=== PATIENT | female | born 1970 | race Caucasian/White ===

== ENCOUNTER → 2016-06-29 | Outpatient (CLI) | payer OTHER ==
[~2016-06-29] VITALS: Ht 167.6 cm; Wt 105.6 kg
[~2016-06-29] MED LIST: ALBUTEROL0.83 MG/ML IH; ATIVAN 0.50.5 MG/TAB PO; ATIVAN 1MG T1 MG/TAB PO; CETIRIZINE PO; CIPRO 500MG TA500 MG PO; FLEXERIL10 MG PO; GABAPENTIN300 M1 PO; LEVAQUIN 750MG750 M1 PO; LORTAB ELIX0.5 MG/ML PO; METHOCARBAMOL500 MG PO; MOBIC15 MG PO; NAPROSYN PO; NORCO 325 MG-51 TAB PO; PEPCID 20MG TAB20 MG PO; PERCOCET 5/321 UDTAB PO; PHENERGAN W/CO120 M1 PO; PHENERGAN W/CO120 ML PO; PREDNISONE20 MG PO; PRILOSEC 20MG20 MG PO; PRILOSEC10 MG PO; PROTONIX 40MG T40 MG PO; PROTONIX20 MG PO; SERTRALINE100 MG PO; SLOW FE45 MG PO; TRAZODO50 MG PO; TYLENOL ARTHRI650 M1 PO; VALIUM 5MG T5 MG/TAB PO; VICODIN 5/5001 UDTAB PO; WELLBUTRIN XL150 MG PO; ZITHROMAX 250M250 MG PO; ZOLOFT 100MG100 MG PO; ZOLOFT50 MG PO; [UNRECOGNIZED DRUG - OTHER] PO
[2016-06-29 10:45] VITALS: BP 144/83; PULSE 67
[2016-06-29 11:52] VITALS: BP 149/77; PULSE 74
[2016-06-29 11:53] VITALS: BP 134/71; PULSE 73
[2016-06-29 11:54] VITALS: BP 125/67; PULSE 75
== END ==
LOC: COL.CARD 10:36
DX: R07.9 Chest pain, unspecified (principal)
CPT/HCPCS: A9502; J2785

== ENCOUNTER 2018-04-03 19:50 | Emergency (ER) | payer OTHER ==
[~2018-04-03] VITALS: Ht 167.6 cm; Wt 104.5 kg
[2018-04-03 19:52] VITALS: TEMP 97.9
[2018-04-03 20:38] LABS: BASO # 0.1 (0.0-0.2); EOS # 0.1 (0.0-0.7); EOS % 1.6 % (0-4.0); GRAN # 4.6 (1.4-6.5); GRAN % 67.7 % (42.2-75.2); HEMOGLOBIN 14.7 g/dl (12.5-16.0); LYMPH # 1.5 (1.2-3.4); LYMPH % 21.6 % (20.0-51.0); MEAN CELL VOLUME 88 fl (80.0-100.0); MEAN CORPUSCULAR HEMOGLOBIN 29 pg (27.0-31.0); MEAN CORPUSCULAR HGB CONC 33 g/dl (33.0-37.0); MONO # 0.5 (0.1-0.6); MONO % 7.8 % (1.7-9.3); PLATELET COUNT 311 K/mm3 (130-400); RED BLOOD COUNT 5.03 M/mm3 (4.10-5.30); REDCELL DISTRIBUTION WIDTH-CV 13.9 % (11.5-14.5)
[2018-04-03 20:47] LABS: ALBUMIN 4.2 gm/dL (3.5-5.0); BILIRUBIN,TOTAL 0.5 mg/dL (0.0-1.0); CALCIUM 9.4 mg/dL (8.4-10.2); CREATININE, serum 0.68 mg/dL (0.52-1.25); TOTAL PROTEIN 7.6 gm/dL (6.4-8.2)
[2018-04-03] MEDS ORDERED: ZITHROMAX 250M250 MG PO (21:25)
[2018-04-03] MEDS ORDERED: PREDNISONE20 MG PO (21:25)
[2018-04-03 22:03] VITALS: BP 164/90; PULSE 65
== END 2018-04-03 22:03 | disposition home or self-care (01) ==
LOC: COL.ER 19:50
PROVIDERS: Nurse Practitioner
DX: J20.9 Acute bronchitis, unspecified (principal); F32.9 Major depressive disorder, single episode, unspecified; I10 Essential (primary) hypertension; J45.909 Unspecified asthma, uncomplicated
CPT/HCPCS: J7030; J7512

== ENCOUNTER 2018-08-24 12:12 | Inpatient (IN) | payer OTHER ==
[~2018-08-24] VITALS: Ht 167.6 cm; Wt 112.0 kg
[2018-08-24 13:44] LABS: BASO % 0.6 % (0.0-2.0); EOS # 0.2 (0.0-0.7); EOS % 2.1 % (0-4.0); GRAN # 5.3 (1.4-6.5); GRAN % 73.7 % (42.2-75.2); HEMATOCRIT 39.2 % (37.0-47.0); LYMPH # 1.2 (1.2-3.4); LYMPH % 16.3 % (20.0-51.0); MEAN CELL VOLUME 89 fl (80.0-100.0); MEAN CORPUSCULAR HEMOGLOBIN 29 pg (27.0-31.0); MEAN CORPUSCULAR HGB CONC 33 g/dl (33.0-37.0); MEAN PLATELET VOLUME 9.8 fl (7.4-10.4); MONO # 0.5 (0.1-0.6); PLATELET COUNT 250 K/mm3 (130-400); RED BLOOD COUNT 4.43 M/mm3 (4.10-5.30); REDCELL DISTRIBUTION WIDTH-CV 13.7 % (11.5-14.5)
[2018-08-24 13:53] LABS: PROTHROMBIN TIME 11.7 SECONDS (9.7-12.8)
[2018-08-24 13:54] LABS: ALANINE AMINOTRANSFERASE 15 U/L (9-52); ALBUMIN 3.6 gm/dL (3.5-5.0); ALKALINE PHOSPHATASE 92 U/L (50-136); ANION GAP 9 mmol/L (7-16); AST,SGOT 22 U/L (15-37); BILIRUBIN,TOTAL 0.4 mg/dL (0.0-1.0); BLOOD UREA NITROGEN 12 mg/dL (7-17); CALCIUM 9.1 mg/dL (8.4-10.2); CARBON DIOXIDE 25 mmol/L (22-30); CHLORIDE 107 mmol/L (98-107); GLUCOSE 99 mg/dL (74-106); POTASSIUM 4.1 mmol/L (3.4-5.0); SODIUM 141 mmol/L (137-145); TOTAL PROTEIN 6.7 gm/dL (6.4-8.2)
[2018-08-24 13:56] LABS: PARTIAL THROMBOPLASTIN TIME 31.2 SECONDS (26.0-37.0)
[2018-08-24 14:05] LABS: TROPONIN-I < 0.012 ng/mL (0.000-0.035)
[2018-08-24 14:13] LABS: D-DIMER < 200.00 ng/mLDDu (200-230)
--- NOTE | 2018-08-24 18:26 | NUR ---
Patient to room 309 by wheelchair from ED. A&Ox4, denies pain and discomfort. Nurse oriented patient to room, call light and bed. Patient verbalized an understanding. IV CDI. No further needs expressed from patient. Call light within reach
[2018-08-24 19:39] VITALS: BP 171/70; PULSE 66; TEMP 97.4
[2018-08-24 19:41] VITALS: BP 171/70; PULSE 66; TEMP 97.4
--- NOTE | 2018-08-24 19:45 | NUR ---
pt resting in bed A+Ox4 with family at bedside. reports no pain. tele on. lovenox for VTE. pt reports no needs at this time. call light in reach
[2018-08-24 21:36] VITALS: BP 131/69
[2018-08-24 23:54] VITALS: BP 116/60; PULSE 57; TEMP 97.9
[2018-08-25] VITALS (8 sets, daily range): BP systolic 119–143; BP diastolic 55–66; PULSE 56–66; TEMP 97.4–98.4
--- NOTE | 2018-08-25 05:08 | NUR ---
pt had an uneventful night. reported no pain. last troponin neg. tele in. iv flushes well, no swelling, no redness. pt walk is steady. no soa. lungs clear. no edema noted. vss throughout night. no needs at this time. call light in reach
--- NOTE | 2018-08-25 06:42 | NUR ---
REPORT GIVEN TO DANILO JONES
[2018-08-25 08:44] LABS: BASO % 0.8 % (0.0-2.0); EOS # 0.1 (0.0-0.7); EOS % 2.8 % (0-4.0); GRAN # 3.1 (1.4-6.5); GRAN % 63.6 % (42.2-75.2); HEMATOCRIT 39.6 % (37.0-47.0); LYMPH # 1.2 (1.2-3.4); LYMPH % 24.9 % (20.0-51.0); MEAN CELL VOLUME 89 fl (80.0-100.0); MEAN CORPUSCULAR HEMOGLOBIN 29 pg (27.0-31.0); MEAN CORPUSCULAR HGB CONC 33 g/dl (33.0-37.0); MEAN PLATELET VOLUME 10.4 fl (7.4-10.4); MONO # 0.4 (0.1-0.6); MONO % 7.5 % (1.7-9.3); PLATELET COUNT 260 K/mm3 (130-400); RED BLOOD COUNT 4.44 M/mm3 (4.10-5.30)
[2018-08-25 09:03] LABS: ALBUMIN 3.6 gm/dL (3.5-5.0); BILIRUBIN,TOTAL 0.4 mg/dL (0.0-1.0); CALCIUM 9.1 mg/dL (8.4-10.2); CREATININE, serum 0.75 (0.52-1.25); MAGNESIUM 2.1 mg/dL (1.6-2.3); PHOSPHOROUS 3.6 mg/dL (2.5-4.5); POTASSIUM 4.3 mmol/L (3.4-5.0); TOTAL PROTEIN 6.7 gm/dL (6.4-8.2)
--- NOTE | 2018-08-25 10:30 | NUR ---
HAYLEE met with the patient to discuss a discharge plan. The pt lives in [place] with her children. The pt does not use DME and reports independence with ADLs. The pt's PCP is Christine Krishna NP at [facility] and receives her medications from [facility] with no difficulties. The pt does not have advanced directives in the EMR but was interested in a DPOS-HC form. HAYLEE provided the form. The pt plans to return home upon discharge. There are no additional needs at this time.
--- NOTE | 2018-08-25 18:00 | NUR ---
PT HAD UNEVENTFUL DAY. NO C/O CHEST PAIN THIS SHIFT. TELE DIDNT REPORT ABNORMALITIES. PT ONLY STATED SHE HAD A HEADACHE THIS MORNING, ADMINSTERED PRN TYLENOL, NO FURTHER COMPLAINTS.
--- NOTE | 2018-08-25 19:37 | NUR ---
REPORT RECEIVED FROM DANILO JONES. PT ABOUT TO HAVE DINNER IN BED. PT DENIED PAIN. CALL LIGHT IN REACH. NO CONCERN AT THIS TIME.
--- NOTE | 2018-08-25 20:10 | NUR ---
At approximately 1999, patient was walking in hallway, and this nurse noticed patient grabbing at chest. Asked patient if she was ok. Stated that she was having chest pain. Patient short of breath as well, only able to get a few words out at a time. Wheelchair grabbed for patient, and assiste back to room and into bed. VS: 97.9 59 18 135/61 97% RA. Stated that chest pain subsided after sitting down, as well as SOB. Stated she was just trying to walk for a little while, but only got from her room in 309 to nurse's station. This nurse called telemetry to see if any changes occured to heart rhythm, but was in normal sinus. This nurse called and notified primary nurse of incident. Voices no questions, needs, or concerns at this time. In bed with HOB elevated as requested. Call light is within reach.
--- NOTE | 2018-08-25 20:36 | NUR ---
Pt c/o chest pain when she started walking and reported to nursing staff. Pt resting in bed and reports her chest pain comes and goes. Pt's VS stable. Call light in reach.
--- NOTE | 2018-08-25 22:01 | NUR ---
VISIT ATTEMPTED AND PT SLEEPING SOUNDLY IN BED. CALL LIGHT IN REACH.
--- NOTE | 2018-08-25 23:30 | NUR ---
VISIT ATTEMPTED AND PT SLEEPING SOUNDLY IN BED. CALL LIGHT IN REACH.
[2018-08-26] VITALS (11 sets, daily range): BP systolic 115–144; BP diastolic 47–76; PULSE 49–63; TEMP 97.5–98
--- NOTE | 2018-08-26 00:41 | NUR ---
Report recieved from Matilde CARRASCO. Pt sleeping soundly in bed, easy to wake, a&o, cooperative c cares. Previous assessment agreed upon. Pt denies needs at this time. Call light in reach, will monitor.
--- NOTE | 2018-08-26 00:43 | NUR ---
REPORT GIVEN TO DANILO SHAFER.
[2018-08-26 06:06] LABS: BASO % 0.6 % (0.0-2.0); EOS # 0.1 (0.0-0.7); EOS % 2.7 % (0-4.0); GRAN % 57.7 % (42.2-75.2); HEMATOCRIT 40.6 % (37.0-47.0); HEMOGLOBIN 13.2 g/dl (12.5-16.0); LYMPH # 1.6 (1.2-3.4); LYMPH % 30.2 % (20.0-51.0); MEAN CELL VOLUME 89 fl (80.0-100.0); MEAN CORPUSCULAR HEMOGLOBIN 29 pg (27.0-31.0); MEAN CORPUSCULAR HGB CONC 33 g/dl (33.0-37.0); MEAN PLATELET VOLUME 10.1 fl (7.4-10.4); MONO # 0.4 (0.1-0.6); MONO % 8.4 % (1.7-9.3); PLATELET COUNT 262 K/mm3 (130-400); RED BLOOD COUNT 4.55 M/mm3 (4.10-5.30); REDCELL DISTRIBUTION WIDTH-CV 13.8 % (11.5-14.5)
[2018-08-26 06:17] LABS: ALBUMIN 3.6 gm/dL (3.5-5.0); BILIRUBIN,TOTAL 0.3 mg/dL (0.0-1.0); CALCIUM 9.4 mg/dL (8.4-10.2); CREATININE, serum 0.77 (0.52-1.25); MAGNESIUM 2.1 mg/dL (1.6-2.3); PHOSPHOROUS 3.9 mg/dL (2.5-4.5); POTASSIUM 4.3 mmol/L (3.4-5.0); TOTAL PROTEIN 6.8 gm/dL (6.4-8.2)
--- NOTE | 2018-08-26 08:00 | NUR ---
Patient left with [employer] laborer staff for heart cath at this time.
--- NOTE | 2018-08-26 08:17 | NUR ---
SEE MERGE DOCUMENTATION FOR MEDICATION ADMINISTRATION TIMES AND INTRA/POST PROCEDURE SEDATION ASSESSMENTS.
--- NOTE | 2018-08-26 08:42 | NUR ---
RECEIVED REPORT FROM DANILO SHAFER. PATIENT RESTING IN BED. ASSESSMENT COMPLETED. PATIENT REPORTS NO PAIN. LEFT LOWER LEG AND FOOT ARE A LITTLE PUFFY. INT IV IN LEFT HAND. PATIENT NPO FOR HEART CATH AND ECHO. PATIENT DENIES ANY FURTHER NEEDS AT THIS TIME. CALL LIGHT WITHIN REACH.
[2018-08-26] MEDS ORDERED: LIPITOR 40MG TA40 MG PO (10:26)
[2018-08-26] MEDS ORDERED: ASPIRIN E.C. 8181 MG PO (10:27)
[2018-08-26] MEDS ORDERED: NITROSTAT0.4 MG/TAB SL (10:28)
--- NOTE | 2018-08-26 12:20 | NUR ---
4 ml of air removed from band at this time. No bleeding and patient tolerated well.
--- NOTE | 2018-08-26 13:00 | NUR ---
4 ml of air removed from band at this time. Patient tolerated well and had no bleeding.
--- NOTE | 2018-08-26 13:40 | NUR ---
Remainder of air removed from band at this time. No bleeding from site. Flat time completed. Patient up to bathroom, tolerated well. Patient reported lower back pain and was given tylenol. No other needs at this time. Call light within reach.
--- NOTE | 2018-08-26 15:01 | NUR ---
Went over discharge paperwork with the patient. IV removed tip in tact. Patient getting dressed and will call when ready to be walked out.
--- NOTE | 2018-08-26 15:20 | NUR ---
Patient walked out by nursing staff at this time.
== END 2018-08-26 15:00 | disposition home or self-care (01) | DRG 282 ==
LOC: COL.ER 12:12 → MEDICAL 17:15
PROVIDERS: Family Medicine; ADMIT Family Medicine
PROC: 4A023N7 Measurement of Cardiac Sampling and Pressure, Left Heart, Percutaneous Approach (ICD-10-PCS; principal; 2018-08-26)
PROC: B2111ZZ Fluoroscopy of Multiple Coronary Arteries using Low Osmolar Contrast (ICD-10-PCS; 2018-08-26)
DX: I21.4 Non-ST elevation (NSTEMI) myocardial infarction (principal); E78.5 Hyperlipidemia, unspecified; E66.9 Obesity, unspecified; F41.9 Anxiety disorder, unspecified; I10 Essential (primary) hypertension; G51.0 Bell's palsy; I25.10 Atherosclerotic heart disease of native coronary artery without angina pectoris; M51.36 Other intervertebral disc degeneration, lumbar region; K21.9 Gastro-esophageal reflux disease without esophagitis; Z68.39 Body mass index [BMI] 39.0-39.9, adult; F32.9 Major depressive disorder, single episode, unspecified; Z82.49 Family history of ischemic heart disease and other diseases of the circulatory system; Z88.0 Allergy status to penicillin; Z88.2 Allergy status to sulfonamides; Z88.6 Allergy status to analgesic agent
CPT/HCPCS: 99222-AI; 99233-AI; 99239; C1760; C1769; C1887; C1894; J0153; J1644; J1650; J1885; J2250; J2405; J3010; Q9967

== ENCOUNTER 2018-11-02 07:51 | Emergency (ER) | payer OTHER ==
[~2018-11-02] VITALS: Ht 167.6 cm; Wt 109.1 kg
[~2018-11-02 07:51] MED LIST changes: +ASPIRIN E.C. 8181 MG PO; +LIPITOR 40MG TA40 MG PO; +NITROSTAT0.4 MG/TAB SL
[2018-11-02 07:54] VITALS: TEMP 96.7
[2018-11-02] MEDS ORDERED: ISMO 20MG20 MG PO (08:00)
[2018-11-02] MEDS ORDERED: PRIL40 PO (08:01)
[2018-11-02 08:59] LABS: BASO % 0.6 % (0.0-2.0); EOS # 0.2 (0.0-0.7); EOS % 3.1 % (0-4.0); GRAN # 3.3 (1.4-6.5); GRAN % 62.3 % (42.2-75.2); HEMATOCRIT 41.8 % (37.0-47.0); HEMOGLOBIN 13.7 g/dl (12.5-16.0); LYMPH # 1.3 (1.2-3.4); LYMPH % 25.5 % (20.0-51.0); MEAN CELL VOLUME 87 fl (80.0-100.0); MEAN CORPUSCULAR HEMOGLOBIN 28 pg (27.0-31.0); MEAN CORPUSCULAR HGB CONC 33 g/dl (33.0-37.0); MONO # 0.4 (0.1-0.6); MONO % 8.3 % (1.7-9.3); PLATELET COUNT 275 K/mm3 (130-400); RED BLOOD COUNT 4.83 M/mm3 (4.10-5.30); REDCELL DISTRIBUTION WIDTH-CV 14.1 % (11.5-14.5)
[2018-11-02 09:04] LABS: INR 0.9 (0.8-3.0); PROTHROMBIN TIME 10.6 SECONDS (9.7-12.8)
[2018-11-02 09:06] LABS: ALANINE AMINOTRANSFERASE 25 U/L (9-52); ALBUMIN 4.2 gm/dL (3.5-5.0); ALKALINE PHOSPHATASE 111 U/L (50-136); ANION GAP 11 mmol/L (7-16); AST,SGOT 28 U/L (15-37); BILIRUBIN,TOTAL 0.3 mg/dL (0.0-1.0); BLOOD UREA NITROGEN 11 mg/dL (7-17); CALCIUM 9.4 mg/dL (8.4-10.2); CARBON DIOXIDE 25 mmol/L (22-30); CHLORIDE 105 mmol/L (98-107); CREATININE, serum 0.63 (0.52-1.25); GLUCOSE 98 mg/dL (74-106); POTASSIUM 4.4 mmol/L (3.4-5.0); SODIUM 141 mmol/L (137-145); TOTAL PROTEIN 7.3 gm/dL (6.4-8.2)
[2018-11-02 09:07] LABS: PARTIAL THROMBOPLASTIN TIME 31.6 SECONDS (26.0-37.0)
[2018-11-02 09:17] LABS: TROPONIN-I < 0.012 ng/mL (0.000-0.035)
[2018-11-02 09:43] LABS: D-DIMER < 200.00 ng/mLDDu (200-230)
[2018-11-02] MEDS ORDERED: NORCO 325 MG-51 TAB PO (10:39)
[2018-11-02] MEDS ORDERED: FLEXERIL 1010 MG/TAB PO (10:39)
[2018-11-02 11:20] VITALS: BP 137/81; PULSE 56
== END 2018-11-02 11:30 | disposition home or self-care (01) ==
LOC: COL.ER 07:51
PROVIDERS: Family Medicine
DX: S16.1XXA Strain of muscle, fascia and tendon at neck level, initial encounter (principal); S46.811A Strain of other muscles, fascia and tendons at shoulder and upper arm level, right arm, initial encounter; I25.10 Atherosclerotic heart disease of native coronary artery without angina pectoris; I25.2 Old myocardial infarction; Z79.82 Long term (current) use of aspirin; X58.XXXA Exposure to other specified factors, initial encounter
CPT/HCPCS: J1170; J2060; J2360; J2405

== ENCOUNTER 2018-11-20 11:51 | Emergency (ER) | payer OTHER ==
[~2018-11-20] VITALS: Ht 167.6 cm; Wt 109.1 kg
[~2018-11-20 11:51] MED LIST changes: +FLEXERIL 1010 MG/TAB PO; +ISMO 20MG20 MG PO; +PRIL40 PO
[2018-11-20 12:06] VITALS: TEMP 97
[2018-11-20 12:25] LABS: COLLECTION METHOD CLEAN CATCH
[2018-11-20 12:39] LABS: MUCOUS Present /lpf; PH 5 (5-8); SQUAMOUS EPITHELIAL None Seen /hpf; URINE APPEARANCE Clear; URINE BACTERIA Occasional /hpf; URINE BILIRUBIN Negative (NEGATIVE); URINE BLOOD 3+ (NEGATIVE); URINE COLOR Amber; URINE GLUCOSE Negative (NEGATIVE); URINE KETONE Negative (NEGATIVE); URINE LEUKOCYTE ESTERASE Trace (NEGATIVE); URINE NITRATE Positive (NEGATIVE); URINE PROTEIN(semi-quant) Negative (NEGATIVE); URINE RBC >50 /hpf; URINE UROBILINOGEN >=4.0 mg/dL (NEGATIVE)
[2018-11-20 13:36] LABS: BASO # 0.1 (0.0-0.2); BASO % 0.8 % (0.0-2.0); EOS # 0.2 (0.0-0.7); EOS % 2.9 % (0-4.0); GRAN # 4.3 (1.4-6.5); GRAN % 68.6 % (42.2-75.2); HEMATOCRIT 41.9 % (37.0-47.0); HEMOGLOBIN 13.5 g/dl (12.5-16.0); LYMPH # 1.3 (1.2-3.4); LYMPH % 20.2 % (20.0-51.0); MEAN CELL VOLUME 87 fl (80.0-100.0); MEAN CORPUSCULAR HEMOGLOBIN 28 pg (27.0-31.0); MEAN CORPUSCULAR HGB CONC 32 g/dl (33.0-37.0); MEAN PLATELET VOLUME 10.1 fl (7.4-10.4); MONO # 0.5 (0.1-0.6); MONO % 7.2 % (1.7-9.3); PLATELET COUNT 256 K/mm3 (130-400); REDCELL DISTRIBUTION WIDTH-CV 13.9 % (11.5-14.5)
[2018-11-20] MEDS ORDERED: CIPRO 500MG TA500 MG PO (15:35)
[2018-11-20] MEDS ORDERED: VALIUM 10MG10 MG/TAB PO (15:37)
[2018-11-20 16:02] VITALS: BP 121/71; PULSE 72
== END 2018-11-20 16:05 | disposition home or self-care (01) ==
LOC: COL.ER 11:51
PROVIDERS: Emergency Medicine; Physician Assistant
DX: N30.90 Cystitis, unspecified without hematuria (principal); M54.12 Radiculopathy, cervical region; I25.10 Atherosclerotic heart disease of native coronary artery without angina pectoris; I25.2 Old myocardial infarction; Z79.82 Long term (current) use of aspirin; Z98.890 Other specified postprocedural states
CPT/HCPCS: J0744; J3360; J7030

== ENCOUNTER 2020-01-05 09:16 | Day surgery (SDC) | payer OTHER ==
[2020-01-05] VITALS (14 sets, daily range): BP systolic 119–138; BP diastolic 57–84; PULSE 56–74; TEMP 97.8–98.9
[~2020-01-05] VITALS: Ht 167.6 cm; Wt 112.5 kg
[~2020-01-05 09:16] MED LIST changes: +CEFTIN 250250 MG/TAB PO; +VALIUM 10MG10 MG/TAB PO
[2020-01-05] MEDS ORDERED: HCTZ12.5TAB PO (09:34)
[2020-01-05 10:08] LABS: HEMATOCRIT 38.5 % (37.0-47.0); HEMOGLOBIN 12.7 g/dl (12.5-16.0); MEAN CELL VOLUME 84 fl (80.0-100.0); MEAN CORPUSCULAR HEMOGLOBIN 28 pg (27.0-31.0); MEAN CORPUSCULAR HGB CONC 33 g/dl (33.0-37.0); MEAN PLATELET VOLUME 9.5 fl (7.4-10.4); PLATELET COUNT 275 K/mm3 (130-400); RED BLOOD COUNT 4.59 M/mm3 (4.10-5.30); REDCELL DISTRIBUTION WIDTH-CV 14.3 % (11.5-14.5)
[2020-01-05 10:18] LABS: INR 1.1 (0.8-3.0); PROTHROMBIN TIME 11.9 SECONDS (9.7-12.8)
[2020-01-05 10:19] LABS: CREATININE, serum 0.73 (0.52-1.25); POTASSIUM 3.6 mmol/L (3.4-5.0)
--- NOTE | 2020-01-05 11:22 | NUR ---
SEE MERGE DOCUMENTATION FOR MEDICATION ADMINISTRATION TIMES AND INTRA/POST PROCEDURE SEDATION ASSESSMENTS.
--- NOTE | 2020-01-05 12:40 | NUR ---
Joselo RN retrieves pt's personal belongings and escorts pt and her mother to medical unit for inpt stay following heart cath procedure.
--- NOTE | 2020-01-05 18:21 | NUR ---
Pt up to the floor late morning from the candlemaking laborer catheterization of the LAD, Pt has had no C/O pain since arriving, groin access site remains CDI without redness, swelling, or hematoma. VS have remained stable.
--- NOTE | 2020-01-05 22:52 | NUR ---
Pt assessment completed and documented. Pt resting in bed at this time trying to sleep. Alert and oriented x4. Pt reporting 1/10 intermittent pain to right groin heart cath site that is worse with movement. Pt denies needs for pain medication. INT to left hand CDI. Tele on. Pt denies any needs/concerns. Call light within reach. Pt to transfer to surgical at this time.
--- NOTE | 2020-01-05 23:15 | NUR ---
Pt arrived to the floor via bed. Pt stated that she has no pain at this time. Pt site from her procedure is clean, dry , and intact with a 2x2 and a tegaderm. Pt stated that she has no other concerns at this time. Pt did request water and she was given water at this time. Pt has her call light within reach.
[2020-01-06 04:56] VITALS: BP 122/61; PULSE 54; TEMP 97.8
--- NOTE | 2020-01-06 06:29 | NUR ---
Pt resting in bed. Pt has her call light within reach.
[2020-01-06 07:47] VITALS: BP 119/60; PULSE 68; TEMP 98.4
[2020-01-06] MEDS ORDERED: BRILINTA90 MG PO (08:29)
--- NOTE | 2020-01-06 09:11 | NUR ---
Initial visit; Patient thanked [employer] for looking in on her before she was about to be discharged. Christine stated her visit has been a pleasant one and thanked [employer] for offering God's blessings.
--- NOTE | 2020-01-06 09:30 | NUR ---
Patient alert and oriented, answers questions appropraitely. See assessment. Heart tones strong and even, pulses palpable. Right femoral site with dressing CDI, no numbness or tingling to RLE, pulses palpable. No c/o at this time.
--- NOTE | 2020-01-06 12:04 | NUR ---
Discharge instructions reviewed with patient, verbalized understanding. Discharged via wheelchair to auto/home with family at 1204.
== END 2020-01-06 12:04 | disposition home or self-care (01) ==
LOC: COL.CAR 09:16 → MEDICAL 12:52 → SURG 01-06 03:46 → COL.CAR 01-06 12:04
PROVIDERS: Internal Medicine Cardiovascular Disease
DX: I25.118 Atherosclerotic heart disease of native coronary artery with other forms of angina pectoris (principal); I10 Essential (primary) hypertension; E78.5 Hyperlipidemia, unspecified; K21.9 Gastro-esophageal reflux disease without esophagitis; F32.9 Major depressive disorder, single episode, unspecified; F41.9 Anxiety disorder, unspecified; Z20.828 Contact with and (suspected) exposure to other viral communicable diseases; E66.9 Obesity, unspecified; Z68.41 Body mass index [BMI] 40.0-44.9, adult; Z79.82 Long term (current) use of aspirin; Z79.899 Other long term (current) drug therapy; Z88.5 Allergy status to narcotic agent; Z88.0 Allergy status to penicillin; Z88.8 Allergy status to other drugs, medicaments and biological substances
CPT/HCPCS: OP; C9600; J1644; J2250; J3010; J7030; Q9967

== ENCOUNTER → 2020-04-23 | Outpatient (CLI) | payer OTHER ==
[~2020-04-23] MED LIST changes: +ASPIRIN 81M81 MG/TA2 PO; +BRILINTA90 MG PO; +COREG 3.123.125 MG/T PO; +HCTZ 25MG TAB25 MG PO; +LIPITOR20 MG PO; +MELATONIN5 M1 SL
== END ==
LOC: MC.RAD
DX: Z12.31 Encounter for screening mammogram for malignant neoplasm of breast (principal); Z98.82 Breast implant status

== ENCOUNTER 2020-07-22 14:39 | Emergency (ER) | payer OTHER ==
[~2020-07-22] VITALS: Ht 167.6 cm; Wt 100.0 kg
[~2020-07-22 14:39] MED LIST changes: -ASPIRIN 81M81 MG/TA2 PO; -COREG 3.123.125 MG/T PO; -LIPITOR20 MG PO; -MELATONIN5 M1 SL
[2020-07-22 15:00] VITALS: BP 154/93; PULSE 64; TEMP 97.9
== END 2020-07-22 15:38 | disposition home or self-care (01) ==
LOC: COL.ER 14:39
DX: S90.31XA Contusion of right foot, initial encounter (principal); I25.2 Old myocardial infarction; Z79.02 Long term (current) use of antithrombotics/antiplatelets; Z79.82 Long term (current) use of aspirin; W20.8XXA Other cause of strike by thrown, projected or falling object, initial encounter

== ENCOUNTER 2020-09-15 19:11 | Emergency (ER) | payer OTHER ==
[~2020-09-15] VITALS: Ht 167.6 cm; Wt 113.6 kg
[2020-09-15 20:11] VITALS: BP 158/80; PULSE 56; TEMP 97.9
== END 2020-09-15 21:48 | disposition left against medical advice (07) ==
LOC: COL.ER 19:11
DX: R58 Hemorrhage, not elsewhere classified (principal)

== ENCOUNTER 2020-10-30 19:26 | Emergency (ER) | payer OTHER ==
[~2020-10-30] VITALS: Ht 167.6 cm; Wt 113.6 kg
[2020-10-30 19:45] LABS: BASO # 0.1 (0.0-0.2); BASO % 0.7 % (0.0-2.0); EOS # 0.2 (0.0-0.7); EOS % 2.2 % (0-4.0); GRAN # 6.1 (1.4-6.5); GRAN % 70.3 % (42.2-75.2); HEMATOCRIT 40.8 % (37.0-47.0); HEMOGLOBIN 13.1 g/dl (12.5-16.0); LYMPH # 1.7 (1.2-3.4); LYMPH % 20.1 % (20.0-51.0); MEAN CELL VOLUME 84 fl (80.0-100.0); MEAN CORPUSCULAR HEMOGLOBIN 27 pg (27.0-31.0); MEAN CORPUSCULAR HGB CONC 32 g/dl (33.0-37.0); MEAN PLATELET VOLUME 9.9 fl (7.4-10.4); MONO # 0.6 (0.1-0.6); MONO % 6.5 % (1.7-9.3); PLATELET COUNT 330 K/mm3 (130-400); RED BLOOD COUNT 4.88 M/mm3 (4.10-5.30); REDCELL DISTRIBUTION WIDTH-CV 15.9 % (11.5-14.5)
[2020-10-30 19:52] LABS: INR 0.9 (0.8-3.0); PROTHROMBIN TIME 10.4 SECONDS (9.7-12.8)
[2020-10-30 19:55] LABS: ALANINE AMINOTRANSFERASE 28 U/L (4-34); ALBUMIN 4.3 gm/dL (3.5-5.0); ALKALINE PHOSPHATASE 133 U/L (50-136); ANION GAP 9 mmol/L (7-16); AST,SGOT 32 U/L (15-37); BILIRUBIN,TOTAL 0.3 mg/dL (0.0-1.0); BLOOD UREA NITROGEN 12 mg/dL (7-17); CALCIUM 9.1 mg/dL (8.4-10.2); CARBON DIOXIDE 27 mmol/L (22-30); CHLORIDE 103 mmol/L (98-107); CREATININE, serum 0.78 (0.52-1.25); GLUCOSE 110 mg/dL (74-106); PARTIAL THROMBOPLASTIN TIME 32.5 SECONDS (26.0-37.0); POTASSIUM 3.7 mmol/L (3.4-5.0); SODIUM 139 mmol/L (137-145); TOTAL PROTEIN 7.5 gm/dL (6.4-8.2)
[2020-10-30 20:08] LABS: TROPONIN-I < 0.012 ng/mL (0.000-0.035)
[2020-10-30 23:01] VITALS: BP 161/80; PULSE 55; TEMP 98.5
== END 2020-10-30 23:02 | disposition home or self-care (01) ==
LOC: COL.ER 19:26
PROVIDERS: Family Medicine
DX: R07.89 Other chest pain (principal); I25.2 Old myocardial infarction; I25.10 Atherosclerotic heart disease of native coronary artery without angina pectoris; Z79.82 Long term (current) use of aspirin; Z79.02 Long term (current) use of antithrombotics/antiplatelets
CPT/HCPCS: J2060

== ENCOUNTER 2020-11-23 17:21 | Emergency (ER) | payer OTHER ==
[~2020-11-23] VITALS: Ht 167.6 cm; Wt 113.6 kg
[2020-11-23 18:05] LABS: COLLECTION METHOD CLEAN CATCH
[2020-11-23 18:32] LABS: MUCOUS Present /lpf; PH 5 (5-8); SQUAMOUS EPITHELIAL 0-2 /hpf; URINE APPEARANCE Clear; URINE BACTERIA None Seen /hpf; URINE BILIRUBIN Negative (NEGATIVE); URINE BLOOD 2+ (NEGATIVE); URINE GLUCOSE Negative (NEGATIVE); URINE KETONE Negative (NEGATIVE); URINE LEUKOCYTE ESTERASE Negative (NEGATIVE); URINE NITRATE Positive (NEGATIVE); URINE PROTEIN(semi-quant) 1+ (NEGATIVE); URINE UROBILINOGEN >=4.0 mg/dL (NEGATIVE)
[2020-11-23 18:34] LABS: URINE COLOR Red
[2020-11-23] MEDS ORDERED: CEFTIN 250250 MG/TAB PO (19:02)
[2020-11-23 19:45] VITALS: BP 121/88; PULSE 72; TEMP 98.8
== END 2020-11-23 19:45 | disposition home or self-care (01) ==
LOC: COL.ER 17:21
PROVIDERS: Nurse Practitioner Primary Care
DX: N39.0 Urinary tract infection, site not specified (principal); I10 Essential (primary) hypertension; I25.10 Atherosclerotic heart disease of native coronary artery without angina pectoris; I25.2 Old myocardial infarction; Z88.0 Allergy status to penicillin; Z88.2 Allergy status to sulfonamides; Z88.5 Allergy status to narcotic agent; Z79.82 Long term (current) use of aspirin; Z79.899 Other long term (current) drug therapy

== ENCOUNTER 2020-12-31 05:54 | Day surgery (SDC) | payer OTHER ==
[~2020-12-31] VITALS: Ht 167.7 cm; Wt 112.3 kg
[2020-12-31] VITALS (15 sets, daily range): BP systolic 92–143; BP diastolic 64–81; PULSE 55–71; TEMP 98.2
[2020-12-31 07:22] LABS: MEAN CELL VOLUME 83 fl (80.0-100.0); MEAN CORPUSCULAR HEMOGLOBIN 27 pg (27.0-31.0); MEAN CORPUSCULAR HGB CONC 32 g/dl (33.0-37.0); MEAN PLATELET VOLUME 9.7 fl (7.4-10.4); PLATELET COUNT 293 K/mm3 (130-400); RED BLOOD COUNT 4.46 M/mm3 (4.10-5.30); REDCELL DISTRIBUTION WIDTH-CV 15.8 % (11.5-14.5)
[2020-12-31 07:30] LABS: INR 1.1 (0.8-3.0)
[2020-12-31 07:33] LABS: PARTIAL THROMBOPLASTIN TIME 31.2 SECONDS (26.0-37.0)
[2020-12-31 07:36] LABS: CALCIUM 9.7 mg/dL (8.4-10.2); CREATININE, serum 0.76 mg/dL (0.57-1.11); POTASSIUM 3.1 mmol/L (3.5-4.5)
[2020-12-31] MEDS ORDERED: ATIVAN 0.50.5 MG/TAB PO (08:07)
[2020-12-31] MEDS ORDERED: MELATONIN5 M1 SL (08:08)
[2020-12-31] MEDS ORDERED: ASPIRIN 81M81 MG/TA2 PO (08:08)
[2020-12-31] MEDS ORDERED: BRILINTA90 MG PO (08:09)
[2020-12-31] MEDS ORDERED: NITROSTAT0.4 MG/TAB SL (08:10)
[2020-12-31] MEDS ORDERED: LIPITOR20 MG PO (08:14)
[2020-12-31] MEDS ORDERED: COREG 3.123.125 MG/T PO (08:15)
--- NOTE | 2020-12-31 08:45 | NUR ---
SEE MERGE FOR ALL MEDICATION ADMINISTRATION TIMES, INTRA AND POST SEDATION ASSESSMENTS
--- NOTE | 2020-12-31 14:20 | NUR ---
Safty pressure dressing removed,new dressing applied.No bleeding observed at site.
--- NOTE | 2020-12-31 15:00 | NUR ---
Pt ambulated to bathroom and in hallway.No bleed observed at site.
--- NOTE | 2020-12-31 15:17 | NUR ---
Discharge instructions given to pt.Pt verbalizes understanding.INt removed,catheter tip intact.Dressing to right groin observed clean,dry,intact,and soft to touch.
== END 2020-12-31 16:25 ==
LOC: COL.CAR 05:54
PROVIDERS: Internal Medicine Cardiovascular Disease
DX: I25.118 Atherosclerotic heart disease of native coronary artery with other forms of angina pectoris (principal); E78.5 Hyperlipidemia, unspecified; I10 Essential (primary) hypertension; Z79.899 Other long term (current) drug therapy; Z86.16 Personal history of COVID-19
CPT/HCPCS: C1894; J1644; J2250; J3010; J7030

== ENCOUNTER 2021-02-10 15:13 | Emergency (ER) | payer OTHER ==
[~2021-02-10] VITALS: Ht 167.6 cm; Wt 111.4 kg
[~2021-02-10 15:13] MED LIST changes: +ASPIRIN 81M81 MG/TA2 PO; +COREG 3.123.125 MG/T PO; +LIPITOR20 MG PO; +MELATONIN5 M1 SL
[2021-02-10 15:58] LABS: COLLECTION METHOD CLEAN CATCH
[2021-02-10 16:06] LABS: PH 6 (5-8); SQUAMOUS EPITHELIAL 0-2 /hpf (0-10); URINE APPEARANCE Clear (CLEAR/HAZY); URINE BACTERIA Rare /hpf (NONE SEEN); URINE BILIRUBIN Negative (NEGATIVE); URINE BLOOD 1+ (NEGATIVE); URINE COLOR Amber (YELLOW); URINE GLUCOSE Negative (NEGATIVE); URINE KETONE Trace (NEGATIVE); URINE LEUKOCYTE ESTERASE 1+ (NEGATIVE); URINE NITRATE Positive (NEGATIVE); URINE PROTEIN(semi-quant) Negative (NEGATIVE); URINE RBC 20-50 /hpf (0-2); URINE UROBILINOGEN >=4.0 (NEGATIVE)
[2021-02-10 16:16] VITALS: BP 151/91; TEMP 97.7
[2021-02-10] MEDS ORDERED: MACROBID 1100 MG/CAP PO (17:01)
[2021-02-10 17:36] VITALS: PULSE 63
== END 2021-02-10 17:36 | disposition home or self-care (01) ==
LOC: COL.ER 15:13
PROVIDERS: Emergency Medicine
DX: N30.91 Cystitis, unspecified with hematuria (principal); I25.2 Old myocardial infarction; Z88.1 Allergy status to other antibiotic agents; Z88.2 Allergy status to sulfonamides; Z88.0 Allergy status to penicillin; Z79.82 Long term (current) use of aspirin

== ENCOUNTER 2021-02-24 05:22 | Emergency (ER) | payer OTHER ==
[~2021-02-24 05:22] MED LIST changes: +MACROBID 1100 MG/CAP PO
[2021-02-24 05:34] VITALS: TEMP 100.5
[2021-02-24 06:11] VITALS: BP 150/84; PULSE 77
== END 2021-02-24 06:15 | disposition home or self-care (01) ==
LOC: COL.ER 05:22
DX: U07.1 COVID-19 (principal); I10 Essential (primary) hypertension; I25.10 Atherosclerotic heart disease of native coronary artery without angina pectoris; I25.2 Old myocardial infarction; E78.5 Hyperlipidemia, unspecified; Z79.82 Long term (current) use of aspirin; Z79.899 Other long term (current) drug therapy; Z99.81 Dependence on supplemental oxygen
CPT/HCPCS: J1100; J1885

== ENCOUNTER 2021-06-06 13:58 | Emergency (ER) | payer OTHER ==
[~2021-06-06] VITALS: Ht 167.6 cm; Wt 111.4 kg
[2021-06-06 15:08] LABS: BASO % 0.6 % (0.0-2.0); EOS # 0.2 K/mm3 (0.0-0.7); EOS % 2.6 % (0.0-4.0); GRAN # 4.5 K/mm3 (1.4-6.5); GRAN % 71.9 % (42.2-75.2); HEMATOCRIT 38.7 % (37.0-47.0); HEMOGLOBIN 12.6 g/dl (12.5-16.0); LYMPH # 1.1 K/mm3 (1.2-3.4); LYMPH % 17.7 % (20.0-51.0); MEAN CELL VOLUME 84 fl (80.0-100.0); MEAN CORPUSCULAR HEMOGLOBIN 27 pg (27-31); MEAN CORPUSCULAR HGB CONC 33 g/dl (33.0-37.0); MEAN PLATELET VOLUME 10.3 fl (7.4-10.4); MONO # 0.4 K/mm3 (0.1-0.6); PLATELET COUNT 310 K/mm3 (130-400); RED BLOOD COUNT 4.61 M/mm3 (4.10-5.30); REDCELL DISTRIBUTION WIDTH-CV 15.6 % (11.5-14.5)
[2021-06-06 15:29] LABS: ALANINE AMINOTRANSFERASE 18 U/L (0-55); ALBUMIN 3.5 gm/dL (3.5-5.0); ALKALINE PHOSPHATASE 96 U/L (40-150); ANION GAP 11 mmol/L (7-16); AST,SGOT 20 U/L (5-34); BILIRUBIN,TOTAL 0.3 mg/dL (0.2-1.2); BLOOD UREA NITROGEN 12 mg/dL (7-19); CALCIUM 8.9 mg/dL (8.4-10.2); CARBON DIOXIDE 23 mmol/L (22-29); CHLORIDE 105 mmol/L (98-107); CREATININE, serum 0.77 mg/dL (0.57-1.11); GLUCOSE 88 mg/dL (70-99); SODIUM 139 mmol/L (136-145); TOTAL PROTEIN 7.1 gm/dL (6.2-8.1)
[2021-06-06 15:30] LABS: LIPASE < 4 U/L (8-78)
[2021-06-06] MEDS ORDERED: PERCOCET 325 MG1 TA2 PO (16:35)
[2021-06-06 16:49] VITALS: BP 148/64; PULSE 62; TEMP 98.2
== END 2021-06-06 16:52 | disposition home or self-care (01) ==
LOC: COL.ER 13:58
PROVIDERS: Personal Emergency Response Attendant
DX: K63.89 Other specified diseases of intestine (principal); Z88.6 Allergy status to analgesic agent
CPT/HCPCS: J2405; J3010; J7030; Q9967

== ENCOUNTER → 2023-01-22 | Outpatient (CLI) | payer OTHER ==
[~2023-01-22] MED LIST changes: +PERCOCET 325 MG1 TA2 PO; +PREDNISONE50 MG PO
== END ==
LOC: MC.RAD 12:51
DX: Z12.31 Encounter for screening mammogram for malignant neoplasm of breast (principal)

== ENCOUNTER 2023-09-17 10:01 | Emergency (ER) | payer OTHER ==
[~2023-09-17] VITALS: Ht 167.6 cm; Wt 98.9 kg
[2023-09-17 10:22] VITALS: TEMP 98
[2023-09-17 11:05] LABS: COLLECTION METHOD CLEAN CATCH
[2023-09-17 11:35] LABS: URINE APPEARANCE Cloudy (CLEAR/HAZY); URINE COLOR RED (YELLOW)
[2023-09-17 11:36] LABS: URINE KETONE 1+ (NEGATIVE); URINE PROTEIN(semi-quant) 3+ (NEGATIVE)
[2023-09-17 11:37] LABS: URINE BLOOD 3+ (NEGATIVE); URINE GLUCOSE TRACE (NEGATIVE); URINE NITRATE Positive (NEGATIVE)
[2023-09-17 11:38] LABS: URINE RBC >50 /hpf (0-2); URINE WBC >50 /hpf (0-2)
[2023-09-17 11:39] LABS: URINE BACTERIA MANY /hpf (NONE SEEN)
[2023-09-17] MEDS ORDERED: cefTRIAXone 1 G,Lidocaine PF 1% 2.1 ML IM ONE (12:15)
[2023-09-17] MEDS ORDERED: CEPHALEXIN500 M1 PO (12:19)
[2023-09-17] MEDS ORDERED: ZOFRAN ODT4 MG PO (12:19)
[2023-09-17 12:30] VITALS: BP 143/79; PULSE 65
== END 2023-09-17 12:30 | disposition home or self-care (01) ==
LOC: COL.ER 10:01
PROVIDERS: Physician Assistant
DX: N30.91 Cystitis, unspecified with hematuria (principal); Z88.0 Allergy status to penicillin; Z88.2 Allergy status to sulfonamides
CPT/HCPCS: J0696